=== PATIENT | female | born 1995 | race Caucasian/White ===

== ENCOUNTER → 2017-02-03 | Emergency (ER) | payer OTHER ==
[~2017-02-03] VITALS: Ht 152.4 cm; Wt 56.7 kg
[~2017-02-03] MED LIST: ANTACID PO; BIRTH CONTROL PO; CELEXA20 MG PO
== END ==
LOC: ED 02:15
DX: R10.9 Unspecified abdominal pain (principal); Z53.21 Procedure and treatment not carried out due to patient leaving prior to being seen by health care provider
CPT/HCPCS: 80053; 83690; 84703; 85025; 96361; 96374; 96375; 99283; J2405; J2765; J7030